=== PATIENT | female | born 1940 | race Caucasian/White ===

== ENCOUNTER 2016-07-17 21:26 | Observation (INO) | payer OTHER, BC ==
[~2016-07-17] VITALS: Ht 156.2 cm; Wt 60.0 kg
[2016-07-17 22:21] LABS: BASO % 0.5 %; BASO ABS # 0.04 K/uL (0-0.2); COMPLETE YES; EOS % 0.2 %; HEMATOCRIT 36.7 % (37-47); IG% 0.4 %; LYMPH % 22.4 %; LYMPH ABS # 1.89 K/uL (1.2-3.4); MEAN CELL VOLUME 89.7 fL (80-100); MEAN CORPUSCULAR HEMOGLOBIN 31.8 pg (25-34); MEAN CORPUSCULAR HGB CONC 35.4 g/dl (32-36); MEAN PLATELET VOLUME 9.9 fL (7.4-10.4); MONO % 8.6 %; NEUT % 67.9 %; PLATELET COUNT 331 K/uL (130-400); RED BLOOD COUNT 4.09 M/uL (4.2-5.4); WHITE BLOOD COUNT 8.45 K/uL (4.8-10.8)
[2016-07-17] MEDS ORDERED: SODIUM CHLORIDE 0.9% 250ML 250 ML IV STA (22:29)
[2016-07-17] MEDS ORDERED: ONDANSETRON INJ 2 MG/ML 2 ML VIAL IV STA (22:29)
[2016-07-17 22:32] LABS: ALT/SGPT 21 U/L (12-78); BLOOD UREA NITROGEN 10 mg/dl (7-18); BUN/CREATININE RATIO 10.5 (10-20); CALCIUM 9.1 mg/dl (8.5-10.1); CARBON DIOXIDE 22 mmol/L (21-32); CHLORIDE 94 mmol/L (98-107); CREATININE 0.94 mg/dl (0.60-1.20); GLUCOSE 135 mg/dl (70-99); MAGNESIUM 1.7 mg/dl (1.8-2.4); POTASSIUM 2.8 mmol/L (3.5-5.1); SODIUM 131 mmol/L (136-145)
[2016-07-17] MEDS ORDERED: BIMA0.01 OP (22:32)
[2016-07-17] MEDS ORDERED: CPR500 PO (22:32)
[2016-07-17] MEDS ORDERED: BRIM0.1S OP (22:32)
[2016-07-17] MEDS ORDERED: LISIPOW PO (22:32)
[2016-07-17] MEDS ORDERED: DORZ2SOL17 OP (22:32)
[2016-07-17] MEDS ORDERED: METR-163 PO (22:32)
--- NOTE | 2016-07-17 22:34 | DIAGNOSTIC IMAGING REPORT ---
SINGLE VIEW CHEST CLINICAL HISTORY: Atypical chest pain. FINDINGS: An AP, portable, upright chest radiograph is obtained. No prior studies are available for comparison at the time of dictation. The examination is degraded by portable technique and apical lordotic positioning. The heart is mildly enlarged and there is atherosclerotic calcification of the thoracic aorta. The pulmonary vasculature is noncongested. The lungs and pleural spaces are clear. No pneumothorax is seen. The skeletal structures are osteopenic. The bony thorax is grossly intact. IMPRESSION: Cardiac enlargement with no active disease in the chest. Electronically signed by: Lemuel Sim M.D. 07/17/2016 10:33 PM Dictated Date/Time: 07/17/2016 10:32 PM
[2016-07-17 22:41] LABS: ALKALINE PHOSPHATASE 70 U/L (45-117); AST/SGOT 16 U/L (15-37); CKMB/CK RATIO 1.3 (0-3.0)
[2016-07-17] MEDS ORDERED: MAGNESIUM SULFATE 1GM / D5W 1 GM BAG IV STA (23:02)
[2016-07-17] MEDS ORDERED: POTASSIUM CHLORIDE 10 MEQ TABCR PO STA (23:02)
[2016-07-17] MEDS ORDERED: METOCLOPRAMIDE HCL INJ 5 MG/ML 2 ML VIAL IV STA (23:17)
[2016-07-17 23:19] LABS: URINE APPEARANCE CLEAR (CLEAR); URINE BILIRUBIN NEG (NEG); URINE COLOR YELLOW; URINE EPITHELIAL CELL AUTO 20-30 /lpf (0-5); URINE NITRITE NEG (NEG); URINE PH 5.5 (4.5-7.5); URINE SPECIFIC GRAVITY 1.011 (1.000-1.030); UROBILINOGEN NEG (NEG); ZZUR CULT IF INDIC CLEAN CATCH NO
[2016-07-17 23:24] LABS: MANUAL MICROSCOPIC REQUIRED? NO; REVIEW REQ? NO
[2016-07-17] MEDS ORDERED: LISINOPRIL 20 MG TAB PO STA (23:35)
[2016-07-17 23:45] LABS: PARTIAL THROMBOPLASTIN RATIO 1.1
[2016-07-17] MEDS ORDERED: ONDANSETRON INJ 2 MG/ML 2 ML VIAL IV PRN (23:45)
[2016-07-17] MEDS ORDERED: PROMETHAZINE HCL INJ 12.5 MG in SODIUM CHLORIDE 0.9% 50ML 50 ML IV PRN (23:45)
[2016-07-17] MEDS ORDERED: ACETAMINOPHEN 325 MG TAB PO PRN (23:45)
[2016-07-17] MEDS ORDERED: MoRPHine SULFATE 4 MG/ML 1 ML CARP\\VIAL IV PRN (23:45)
[2016-07-17] MEDS ORDERED: LORAZEPAM 2 MG/ML 1 ML VIAL IV PRN (23:45)
[2016-07-17] MEDS ORDERED: TRAMADOL HCL 50 MG TAB PO PRN (23:45)
[2016-07-17] MEDS ORDERED: NITROGLYCERIN 0.4 MG SL PER TAB CHARGE SL PRN (23:45)
[2016-07-17] MEDS ORDERED: LISINOPRIL 5 MG TAB ONE (23:58)
--- NOTE | 2016-07-18 00:03 | HISTORY & PHYSICAL EXAMINATION ---
DATE OF ADMISSION: 07/17/2016 PRIMARY DOCTOR: Ceci Sorensen PA-C. Hx obtained from px and records. CHIEF COMPLAINT: Not feeling well, diarrhea. HISTORY OF PRESENT ILLNESS: Medical history significant for hypertension, glaucoma, history of diverticulitis. Patient seen at PCP's office about 2 weeks ago for sick visit. Not feeling well, cold symptoms, nonproductive cough, upset stomach, nausea, loose stools. Lab work normal, plain abd x-ray normal. Patient later requested for prescription thinking she may have symptoms of possible diverticulitis. Had a few days intake of meds, increased diarrhea. Denies chest pain, shortness of breath. Px feeling worse, tingly all over. Patient brought to the Emergency Room. MEDICAL HISTORY: As above. SURGERIES: She has had eye surgery, orthopedic procedures. HOME MEDICATIONS: Include Zofran, lisinopril/HCTZ, cranberry, calcium carbonate, polyethylene glycol, Lumigan. ALLERGIES: OXYCODONE, PENICILLIN, PREDNISONE, AND TIMOLOL. FAMILY HISTORY: Hypertension. PERSONAL SOCIAL HISTORY: Nonsmoker, no chronic intake of beverages. 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 REVIEW OF SYSTEMS: As per HPI, all other ROS negative. PHYSICAL EXAMINATION: VITAL SIGNS: Blood pressure was noted to be 195/97, later 180/70 pulse rate 100, RR 20 temperature 36.6, sats 98RA GENERAL: Slightly anxious, obese, no respiratory distress. SKIN: Normal color. HEENT: [place] palpebral conjunctivae. Dry mucosa. NECK: Short neck. LUNGS: Decreased breath sounds. HEART: Regular rate and rhythm. ABDOMEN: Some distention, nontender. EXTREMITIES: No edema. no tenderness NEUROLOGIC: No gross focality. LABS: Hemoglobin 13, hematocrit 36.7, white cells 8.4, platelets 230. Sodium 131, potassium 2.8, chloride 94, CO2 22, BUN 10, creatinine 1, glucose was noted to be 135. Troponin was normal. IMAGING DATA: Chest x-ray normal. EKG - some ST depressions in the lateral leads. ASSESSMENT: 1. Hypertensive urgency secondary to illness, viral enteritis rule out Cdif diarrhea 2. hypokalemia secondary to diarrheal illness PLAN: Observation PCU. judicious blood pressure control. May need extra dose of lisinopril. IVF, Replace potassium. Hold home diuretic for now. DC cipro/flagyl (no diverticultis on clinical exam) Check stool C. dif. Home tomorrow morning if BP controlled and w/ clinical/symptomatic improvement DVT prophylaxis, Lovenox subQ. Full code. MTDD
[2016-07-18 00:20] VITALS: BP 150/84; PULSE 95; TEMP 36.6; O2SAT 93; Ht 156.2 cm; Wt 60.0 kg
[2016-07-18] MEDS ORDERED: IV FLUIDS COMPLETED PRN (00:30)
[2016-07-18] MEDS ORDERED: POTASSIUM CHLORIDE INJ 40 MEQ in SODIUM CHLORIDE 0.9% 1000ML 1,000 ML IV SCH (01:00)
[2016-07-18] MEDS: ALPHAGAN~ORDER AWAITING ACTION SCH ×3 (01:15→15:48)
[2016-07-18] MEDS ORDERED: LORAZEPAM INJ 0.5 MG in SYRINGE 0.75 ML IV PRN (01:15)
[2016-07-18] MEDS: POTASSIUM CHLORIDE 10 MEQ TABCR PO ONE ×2 (01:28→02:06)
[2016-07-18 01:35] LABS: PROTHROMBIN TIME (PATIENT) 11.1 SECONDS (9.0-12.0)
[2016-07-18 04:00] VITALS: BP 140/64; PULSE 98; TEMP 36.6; O2SAT 96
--- NOTE | 2016-07-18 05:02 | EMERGENCY ROOM VISIT NOTE ---
History First contact with patient: 21:55 Chief Complaint: NAUSEA Stated Complaint: TREMORS,NAUSEA,DIARRHEA Nursing Triage Summary: patient reports diarrhea since 0530 this morning with dry heaving, states "I was just getting over the cold and now this." History of Present Illness The patient is a 75 year old female who presents to the Emergency Room with complaints of nausea, heartburn and diarrhea for the past few days. Patient states 2 weeks ago she was not feeling well and went to see her family doctor. Had blood work done and then emailed her PCP 3 days ago as she thought she might have diverticulitis could she had nausea and diarrhea. Family doctor prescribed her Cipro and Flagyl. Symptoms got worse. She then came here for further evaluation and treatment. Patient complains of occasional heartburn with nausea and 6 episodes of nonbloody non-bloody and non-mucousy nonblack and tarry diarrhea today. No other antibiotics. No well water. Patient denies chest pain, dyspnea, fever, chills, vomiting, urinary symptoms. Patient is tolerating by mouth fluids but has a lack of appetite. Review of Systems See HPI for pertinent positives & negatives. A total of 10 systems reviewed and were otherwise negative. Past Medical/Surgical History Medical Problems: (1) Hypertensive urgency Hypertension, glaucoma, diverticulitis Social History Smoking Status: Never Smoker Smokeless Tobacco Use: No Alcohol Use: none Drug Use: none Marital Status: Housing Status: lives with family Current/Historical Medications Scheduled Bimatoprost (Lumigan), 1 DROPS OP HS Brimonidine Tartrate (Alphagan P Oph), 1 DROP OP BID Ciprofloxacin (Ciprofloxacin HCl), 500 MG PO BID Dorzolamide Hcl (Trusopt Oph), 1 DROPS OP BID Metronidazole (Flagyl), 500 MG PO TID [Lisinopril], 1 DOSE PO DAILY Allergies Coded Allergies: Penicillins (Unverified Allergy, Unknown, hives, 07/17/16) Physical Exam Vital Signs Date Time Temp Pulse Resp B/P Pulse Ox O2 Delivery O2 Flow Rate FiO2 07/17/16 23:06 103 07/17/16 22:57 105 20 180/101 94 Room Air 07/17/16 22:12 97 Room Air 07/17/16 22:12 97 Room Air 07/17/16 21:33 36.6 118 18 195/97 97 Room Air Pain Rating (0-10): 0 Physical Exam VITALS: Vitals are noted on the nurse's note and reviewed by myself. Vital signs hypertensive and tachycardic GENERAL: Pleasant female, in no acute distress, nondiaphoretic, well-developed well-nourished. SKIN: The skin was without rashes, erythema, edema, or bruising. There is no tenting of the skin. Capillary reflex less than 2 seconds. HEAD: Normocephalic atraumatic. EARS: External auditory canals clear, tympanic membranes pearly gallagher without erythema or effusion bilaterally. EYES: Pupils equal round and reactive to light and accommodation. Conjunctivae without injection, sclerae without icterus. Extraocular movements intact. NOSE: Patent, turbinates without inflammation or discharge. MOUTH: Mucous membranes mildly dry. Pharynx without erythema or exudate. Uvula midline. Airway patent. Tongue does not deviate. NECK: Supple without nuchal rigidity. No lymphadenopathy. No thyromegaly. Cervical spine is nontender. No JVD. HEART: Regular rate and rhythm LUNGS: Clear to auscultation bilaterally without wheezes, rales or rhonchi. No dullness to percussion. No retractions or accessory muscle use. ABDOMEN: Positive bowel sounds x 4. Normal tympanic percussion. Soft, nontender, without masses or organomegaly. Goldberg sign negative. No guarding or rebound tenderness. No CVA tenderness MUSCULOSKELETAL: No muscle atrophy, erythema, or edema noted. NEURO: Patient was alert and oriented to person place and time. Normal sensation to light and sharp touch. No focal neurological deficits. Medical Decision & Procedures Laboratory Results Test 07/17/16 21:10 07/17/16 22:00 07/17/16 22:10 Prothrombin Time 11.1 SECONDS (9.0-12.0) Prothromb Time International Ratio 1.0 (0.9-1.1) RDW Standard Deviation 40.1 fL (36.4-46.3) RDW Coefficient of Variation 12.2 % (11.5-14.5) White Blood Count 8.45 K/uL (4.8-10.8) Red Blood Count 4.09 M/uL (4.2-5.4) Hemoglobin 13.0 g/dL (12.0-16.0) Hematocrit 36.7 % (37-47) Mean Corpuscular Volume 89.7 fL (80-100) Mean Corpuscular Hemoglobin 31.8 pg (25-34) Mean Corpuscular Hemoglobin Concent 35.4 g/dl (32-36) Platelet Count 331 K/uL (130-400) Mean Platelet Volume 9.9 fL (7.4-10.4) Neutrophils (%) (Auto) 67.9 % Lymphocytes (%) (Auto) 22.4 % Monocytes (%) (Auto) 8.6 % Eosinophils (%) (Auto) 0.2 % Basophils (%) (Auto) 0.5 % Neutrophils # (Auto) 5.74 K/uL (1.4-6.5) Lymphocytes # (Auto) 1.89 K/uL (1.2-3.4) Monocytes # (Auto) 0.73 K/uL (0.11-0.59) Eosinophils # (Auto) 0.02 K/uL (0-0.5) Basophils # (Auto) 0.04 K/uL (0-0.2) Immature Granulocyte % (Auto) 0.4 % Immature Granulocyte # (Auto) 0.03 K/uL (0.00-0.02) Urine Color YELLOW Urine Appearance CLEAR (CLEAR) Urine pH 5.5 (4.5-7.5) Urine Specific [place] 1.011 (1.000-1.030) Urine Protein NEG (NEG) Urine Glucose (UA) NEG (NEG) Urine Ketones TRACE (NEG) Urine Occult Blood NEG (NEG) Urine Nitrite NEG (NEG) Urine Bilirubin NEG (NEG) Urine Urobilinogen NEG (NEG) Urine Leukocyte Esterase TRACE (NEG) Urine WBC (Auto) 1-5 /hpf (0-5) Urine RBC (Auto) 0-4 /hpf (0-4) Urine Hyaline Casts (Auto) 1-5 /lpf (0-5) Urine Epithelial Cells (Auto) 20-30 /lpf (0-5) Urine Bacteria (Auto) NEG (NEG) Est Creatinine Clear Calc Drug Dose 47.8 ml/min Total Bilirubin 0.3 mg/dl (0.2-1) Direct Bilirubin < 0.1 mg/dl (0-0.2) Aspartate Amino Transf (AST/SGOT) 16 U/L (15-37) Alanine Aminotransferase (ALT/SGPT) 21 U/L (12-78) Alkaline Phosphatase 70 U/L (45-117) Total Creatine Kinase 119 U/L (26-192) Creatine Kinase MB 1.5 ng/ml (0.5-3.6) Creatine Kinase MB Ratio 1.3 (0-3.0) Troponin I < 0.015 ng/ml (0-0.045) Total Protein 7.0 gm/dl (6.4-8.2) Albumin 4.1 gm/dl (3.4-5.0) Lipase 87 U/L (73-393) Thyroid Stimulating Hormone (TSH) 2.030 uIu/ml (0.300-4.500) Activated Partial Thromboplast Time 27.8 SECONDS (21.0-31.0) Partial Thromboplastin Ratio 1.1 Date/Time Source Procedure Growth Status 07/17/16 22:45 Stool C.difficile Toxin B Gene (PCR) - Final No C. difficile toxin B gene detected Complete Medications Administered Medications (Trade) Dose Ordered Sig/Taylor Route Start Time Stop Time Status Last Admin Dose Admin Ondansetron HCl 4 mg 4 mg NOW STAT IV 07/17/16 22:29 07/17/16 22:30 DC 07/17/16 22:56 4 MG Sodium Chloride (Nss 250ml) 250 ml @ 999 mls/hr Q16M STAT IV 07/17/16 22:29 07/17/16 22:44 DC 07/17/16 22:55 999 MLS/HR Potassium Chloride (Klor-Con M10) 40 meq NOW STAT PO 07/17/16 23:02 07/17/16 23:04 DC 07/17/16 23:42 40 MEQ Magnesium Sulfate (Magnesium Sulfate) 1 gm NOW STAT IV 07/17/16 23:02 07/17/16 23:04 DC 07/17/16 23:41 1 GM Metoclopramide HCl (Reglan Inj) 5 mg NOW STAT IV 07/17/16 23:17 07/17/16 23:18 DC 07/17/16 23:42 5 MG ED Course Prior records/ancillary studies reviewed and summarized above. Nursing notes reviewed. Additional history obtained from family The patient's history was concerning for nausea, diarrhea, fatigue and heartburn Differential diagnosis: Etiologies such as metabolic, infection, hypo/hyperglycemia, electrolyte abnormalities, cardiac sources, intracerebral event, toxicologic, neurologic, as well as others were entertained. Physical examination: As above. ER treatment provided: IV Lock IV fluids, Zofran, Reglan On reassessment the patient felt better. Diagnostics interpretation by me: ECG: Normal sinus, normal intervals, minimal ST depression in the lateral leads , rate of 97. EKG compared to prior EKG from 07/05/2016 with the EKG depressions appreciated in the lateral leads interpreted by myself The labs revealed low potassium. Low magnesium and this is replaced. Negative troponin Imaging studies: SINGLE VIEW CHEST CLINICAL HISTORY: Atypical chest pain. FINDINGS: An AP, portable, upright chest radiograph is obtained. No prior studies are available for comparison at the time of dictation. The examination is degraded by portable technique and apical lordotic positioning. The heart is mildly enlarged and there is atherosclerotic calcification of the thoracic aorta. The pulmonary vasculature is noncongested. The lungs and pleural spaces are clear. No pneumothorax is seen. The skeletal structures are osteopenic. The bony thorax is grossly intact. IMPRESSION: Cardiac enlargement with no active disease in the chest. Electronically signed by: Lemuel Sim M.D. 07/17/2016 10:33 PM Consultation: A consultation was placed with the hospitalist, Dr. Bragg. The case was discussed and diagnostics were reviewed. The patient was evaluated in the ER for further treatment. Exam and history seem consistent with nausea, diarrhea with electrolyte abnormalities EKG changes. This could be an anginal equivalent. Patient will be evaluated by medicine for possible admission.By the evaluation outlined above emergent etiologies such as infection, intracerebral event, toxologic, neurologic, abnormalities blood glucose, metabolic, as well as others were deemed relatively unlikely. The pt informed about the findings as listed above. All questions were answered and pleased with the treatment. Case reviewed by attending Medical Decision As above Impression Primary Impression: Nausea Additional Impressions: Acute electrocardiogram changes Diarrhea Hypokalemia Hypomagnesemia Departure Information Dispostion Being Evaluated By Hospitalist Condition FAIR Referrals Ceci Spence PA-C (PCP) Patient Instructions My [facility] Problem Qualifiers
[2016-07-18 06:29] LABS: BASO % 0.3 %; BASO ABS # 0.02 K/uL (0-0.2); COMPLETE YES; HEMATOCRIT 34.4 % (37-47); IG% 0.3 %; LYMPH % 15.5 %; LYMPH ABS # 1.23 K/uL (1.2-3.4); MEAN CELL VOLUME 89.6 fL (80-100); MEAN CORPUSCULAR HEMOGLOBIN 31.5 pg (25-34); MEAN CORPUSCULAR HGB CONC 35.2 g/dl (32-36); MEAN PLATELET VOLUME 9.5 fL (7.4-10.4); MONO % 8.8 %; NEUT % 75.1 %; PLATELET COUNT 285 K/uL (130-400); RED BLOOD COUNT 3.84 M/uL (4.2-5.4); WHITE BLOOD COUNT 7.96 K/uL (4.8-10.8)
[2016-07-18 07:04] LABS: BUN/CREATININE RATIO 10.2 (10-20); CALCIUM 8.7 mg/dl (8.5-10.1); CREATININE 0.84 mg/dl (0.60-1.20); MAGNESIUM 2.1 mg/dl (1.8-2.4)
[2016-07-18 07:37] VITALS: BP 175/91; PULSE 96; TEMP 36.6; O2SAT 96
[2016-07-18] MEDS: ENOXAPARIN 40 MG/0.4 ML SYR SC SCH ×2 (08:31→08:35)
[2016-07-18] MEDS ORDERED: DORZOLAMIDE HCL 2% OPH SOLN 10 ML BTL OP SCH (09:00)
[2016-07-18] MEDS ORDERED: LISINOPRIL 20 MG TAB PO SCH (09:00)
[2016-07-18 12:06] VITALS: BP 137/79; PULSE 88; TEMP 36.9; O2SAT 95
--- NOTE | 2016-07-18 15:22 | Progress Note ---
Medicine Progress Note Date & Time of Visit: Jul 18, 2016 at 15:10. Subjective Pt was seen and examine Pt was coming off from the bathroom when i entered her room she walks fine with no distress Pt said that she only had one episode of loose stool she said that she feels fine denies any chest pain, palpitation, dizziness and sob she tolerated clear liquid diet Objective Last 8 Hrs Date Time Temp Pulse Resp B/P Pulse Ox O2 Delivery O2 Flow Rate FiO2 07/18/16 12:06 36.9 88 18 137/79 95 Room Air 07/18/16 08:00 Room Air 07/18/16 07:37 36.6 96 18 175/91 96 Room Air Physical Exam: General- No acute distress Head- atraumatic Eyes- PERRL, EOMI ENT- oropharynx clear Neck- supple, no JVD Lungs- clear to auscultation and percussion Heart- regular rhythm; no murmur Abdomen- normal bowel sounds, soft Extremities- no calf tenderness Neuro- alert, oriented, PERRL, EOMI Skin- warm & dry Laboratory Results: Last 24 Hours Test 07/17/16 21:10 07/17/16 22:00 07/17/16 22:10 07/18/16 06:17 Prothrombin Time 11.1 SECONDS Prothromb Time International Ratio 1.0 White Blood Count 8.45 K/uL 7.96 K/uL Red Blood Count 4.09 M/uL 3.84 M/uL Hemoglobin 13.0 g/dL 12.1 g/dL Hematocrit 36.7 % 34.4 % Mean Corpuscular Volume 89.7 fL 89.6 fL Mean Corpuscular Hemoglobin 31.8 pg 31.5 pg Mean Corpuscular Hemoglobin Concent 35.4 g/dl 35.2 g/dl Platelet Count 331 K/uL 285 K/uL Mean Platelet Volume 9.9 fL 9.5 fL Neutrophils (%) (Auto) 67.9 % 75.1 % Lymphocytes (%) (Auto) 22.4 % 15.5 % Monocytes (%) (Auto) 8.6 % 8.8 % Eosinophils (%) (Auto) 0.2 % 0.0 % Basophils (%) (Auto) 0.5 % 0.3 % Neutrophils # (Auto) 5.74 K/uL 5.99 K/uL Lymphocytes # (Auto) 1.89 K/uL 1.23 K/uL Monocytes # (Auto) 0.73 K/uL 0.70 K/uL Eosinophils # (Auto) 0.02 K/uL 0.00 K/uL Basophils # (Auto) 0.04 K/uL 0.02 K/uL RDW Standard Deviation 40.1 fL 40.0 fL RDW Coefficient of Variation 12.2 % 12.3 % Immature Granulocyte % (Auto) 0.4 % 0.3 % Immature Granulocyte # (Auto) 0.03 K/uL 0.02 K/uL Urine Color YELLOW Urine Appearance CLEAR Urine pH 5.5 Urine Specific [place] 1.011 Urine Protein NEG Urine Glucose (UA) NEG Urine Ketones TRACE Urine Occult Blood NEG Urine Nitrite NEG Urine Bilirubin NEG Urine Urobilinogen NEG Urine Leukocyte Esterase TRACE Urine WBC (Auto) 1-5 /hpf Urine RBC (Auto) 0-4 /hpf Urine Hyaline Casts (Auto) 1-5 /lpf Urine Epithelial Cells (Auto) 20-30 /lpf Urine Bacteria (Auto) NEG Sodium Level 131 mmol/L 133 mmol/L Potassium Level 2.8 mmol/L 4.0 mmol/L Chloride Level 94 mmol/L 99 mmol/L Carbon Dioxide Level 22 mmol/L 22 mmol/L Anion Gap 15.0 mmol/L 12.0 mmol/L Blood Urea Nitrogen 10 mg/dl 9 mg/dl Creatinine 0.94 mg/dl 0.84 mg/dl Est Creatinine Clear Calc Drug Dose 47.8 ml/min 53.9 ml/min Estimated GFR () 68.3 78.2 Estimated GFR (Non- 58.9 67.5 BUN/Creatinine Ratio 10.5 10.2 Random Glucose 135 mg/dl 112 mg/dl Calcium Level 9.1 mg/dl 8.7 mg/dl Magnesium Level 1.7 mg/dl 2.1 mg/dl Total Bilirubin 0.3 mg/dl Direct Bilirubin < 0.1 mg/dl Aspartate Amino Transf (AST/SGOT) 16 U/L Alanine Aminotransferase (ALT/SGPT) 21 U/L Alkaline Phosphatase 70 U/L Total Creatine Kinase 119 U/L Creatine Kinase MB 1.5 ng/ml Creatine Kinase MB Ratio 1.3 Troponin I < 0.015 ng/ml Total Protein 7.0 gm/dl Albumin 4.1 gm/dl Lipase 87 U/L Thyroid Stimulating Hormone (TSH) 2.030 uIu/ml Activated Partial Thromboplast Time 27.8 SECONDS Partial Thromboplastin Ratio 1.1 Date/Time Source Procedure Growth Status 07/17/16 22:45 Stool C.difficile Toxin B Gene (PCR) - Final No C. difficile toxin B gene detected Complete 07/17/16 22:45 Stool Shiga Toxin Test Pending Received 07/17/16 22:45 Stool Stool Culture Pending Received 07/17/16 22:00 Urine , Clean Catch Urine Culture Pending Received Assessment & Plan Hypertensive urgency Possible related to recent illness BP stable She received 10 mg of lisinopril last night and 20mg this morning she was on lisinopril/hctz 20/25 mg daily as an outpatient will consider to discharge on lisinopril 40 mg daily Electrolytes imbalance Possible related to diarrhea vs diuretic K and Mg replaced K today 4 Mg today 2.1 Diarrhea Stool for C diff negative continue gentle IVF DVT px on Lovenox subq Code Status Full code. Current Inpatient Medications: Current Inpatient Medications Medications (Trade) Dose Ordered Sig/Taylor Route Start Time Stop Time Status Last Admin Dose Admin Enoxaparin Sodium (Lovenox Inj) 40 mg Q24H SC 07/18/16 09:00 08/17/16 08:59 Acetaminophen (Tylenol Tab) 650 mg Q4H PRN PO 07/17/16 23:45 08/16/16 23:44 Nitroglycerin (Nitrostat Tab) 0.4 mg UD PRN SL 07/17/16 23:45 08/16/16 23:44 Ondansetron HCl (Zofran Inj) 4 mg Q6H PRN IV 07/17/16 23:45 08/16/16 23:44 Tramadol HCl (Ultram Tab) 25 mg Q6H PRN PO 07/17/16 23:45 08/16/16 23:44 Morphine Sulfate 4 mg 4 mg Q3H PRN IV 07/17/16 23:45 07/31/16 23:44 Promethazine HCl/ Sodium Chloride (Phenergan Inj/ Nss 50ml) 50.5 ml @ 204 mls/hr Q6H PRN IV 07/17/16 23:45 08/16/16 23:44 07/18/16 01:18 204 MLS/HR Lorazepam (Ativan Inj) 0.5 mg Q4H PRN IV 07/17/16 23:45 08/16/16 23:44 Dorzolamide HCl (Trusopt 2% Oph Soln) 1 drops BID OP 07/18/16 09:00 08/17/16 08:59 07/18/16 08:30 1 DROPS Bimatoprost (Lumigan 0.01%) 1 drops HS OP 07/18/16 21:00 08/17/16 20:59 Miscellaneous Information (Order Awaiting Action) 1 ea QS N/A 07/18/16 01:15 08/17/16 01:14 Lisinopril (Zestril Tab) 20 mg QAM PO 07/18/16 09:00 08/17/16 08:59 07/18/16 08:28 20 MG Miscellaneous 1 ea 1 ea PRN PRN N/A 07/18/16 00:30 07/18/17 00:29 Lorazepam/Syringe (Ativan Inj/ Syringe) 1 ml @ 1 mls/min Q4H PRN IV 07/18/16 01:15 08/17/16 01:14
[2016-07-18 16:04] VITALS: BP 150/88; PULSE 81; TEMP 36.6; O2SAT 98
[2016-07-18 18:26] VITALS: BP 150/88; PULSE 81; TEMP 36.6; O2SAT 98
[2016-07-18] MEDS ORDERED: LISI-461 PO (19:01)
--- NOTE | 2016-07-18 19:05 | Discharge Instructions ---
Discharge Instructions Admission Reason for Admission: Hypertensive Urgency Discharge Discharge Diagnosis / Problem: Hypertension, Hypokalemia, Diarrhea Discharge Goals Goal(s): Decrease discomfort, Improve function, Improve disease control Activity Recommendations Activity Limitations: resume your previous activity (as tolerated) . Instructions / Follow-Up Instructions / Follow-Up Follow up with Dr. Link ( Same office with your PCP) on Jul 23 at 11: 10 am Check BMP Monitor Blood pressure Current Hospital Diet Patient's current hospital diet: Regular Diet Discharge Diet Recommended Diet: Low Sodium Diet (2gm Na) Pending Studies Studies pending at discharge: no Medical Emergencies . Who to Call and When: Medical Emergencies: If at any time you feel your situation is an emergency, please call 911 immediately. . Non-Emergent Contact Non-Emergency issues call your: Primary Care Provider Call Non-Emergent contact if: you have any medication questions . . "Provider Documentation" section prepared by Pee Milan. VTE Core Measure Inpt VTE Proph given/why not?: Enoxaparin (Lovenox)SQ
[2016-07-18] MEDS ORDERED: LISI20TA3 PO (19:13)
[2016-07-18] MEDS ORDERED: LSN40 PO (19:18)
[2016-07-18] MEDS ORDERED: BIMATOPROST 0.01% OP SOLN 2.5 ML BTL OP SCH (21:00)
--- NOTE | 2016-07-18 22:34 | Discharge Summary ---
Discharge Summary Admission Date: Jul 17, 2016 at 23:17 Discharge Date: Jul 18, 2016 Discharge Disposition: Home Principal Diagnosis: Hypertensive urgency Secondary Diagnoses/Problems: Hypertension, Hypokalemia, Diarrhea Medication Reconciliation New Medications: Lisinopril (Lisinopril) 40 Mg Tab 40 MG PO DAILY for 30 Days, #30 Continued Medications: Bimatoprost (Lumigan) 0.01 % Corrie 1 DROPS OP HS, 3 Refills Brimonidine Tartrate (Alphagan P Oph) 0.1 % Corrie 1 DROP OP BID, BTL Dorzolamide Hcl (Trusopt Oph) 2 % Corrie 1 DROPS OP BID, 3 Refills Discontinued Medications: Ciprofloxacin (Ciprofloxacin HCl) 500 Mg Tab 500 MG PO BID Metronidazole (Flagyl) 500 Mg Tab 500 MG PO TID, TAB [Lisinopril] () 1 DOSE PO DAILY Admission Information HPI (per Admitting provider): Hx obtained from px and records. CHIEF COMPLAINT: Not feeling well, diarrhea. HISTORY OF PRESENT ILLNESS: Medical history significant for hypertension, glaucoma, history of diverticulitis. Patient seen at PCP's office about 2 weeks ago for sick visit. Not feeling well, cold symptoms, nonproductive cough, upset stomach, nausea, loose stools. Lab work normal, plain abd x-ray normal. Patient later requested for prescription thinking she may have symptoms of possible diverticulitis. Had a few days intake of meds, increased diarrhea. Denies chest pain, shortness of breath. Px feeling worse, tingly all over. Patient brought to the Emergency Room. Physical Exam (per Admitting): PHYSICAL EXAMINATION: VITAL SIGNS: Blood pressure was noted to be 195/97, later 180/70 pulse rate 100, RR 20 temperature 36.6, sats 98RA GENERAL: Slightly anxious, obese, no respiratory distress. SKIN: Normal color. HEENT: [place] palpebral conjunctivae. Dry mucosa. NECK: Short neck. LUNGS: Decreased breath sounds. HEART: Regular rate and rhythm. ABDOMEN: Some distention, nontender. EXTREMITIES: No edema. no tenderness NEUROLOGIC: No gross focality. Hospital Course Hypertensive urgency Possible related to recent illness BP stable now She received 10 mg of lisinopril last night and 20mg this morning she was on lisinopril/hctz 20/25 mg daily as an outpatient will consider to discharge on lisinopril 40 mg daily will hold hctz due to severe hypokalemia Electrolytes imbalance Possible related to diarrhea vs diuretic K and Mg replaced K today 4 Mg today 2.1 Diarrhea Stool for C diff negative continue gentle IVF DVT px on Lovenox subq Code Status Full code. Total time spent on discharge = 35 minutes This includes examination of the patient, discharge planning, medication reconciliation, and communication with other providers. Discharge Instructions Discharge Instructions Admission Reason for Admission: Hypertensive Urgency Discharge Discharge Diagnosis / Problem: Hypertension, Hypokalemia, Diarrhea Discharge Goals Goal(s): Decrease discomfort, Improve function, Improve disease control Activity Recommendations Activity Limitations: resume your previous activity (as tolerated) . Instructions / Follow-Up Instructions / Follow-Up Follow up with Dr. Link ( Same office with your PCP) on Jul 23 at 11: 10 am Check BMP Monitor Blood pressure Current Hospital Diet Patient's current hospital diet: Regular Diet Discharge Diet Recommended Diet: Low Sodium Diet (2gm Na) Pending Studies Studies pending at discharge: no Medical Emergencies . Who to Call and When: Medical Emergencies: If at any time you feel your situation is an emergency, please call 911 immediately. . Non-Emergent Contact Non-Emergency issues call your: Primary Care Provider Call Non-Emergent contact if: you have any medication questions . . "Provider Documentation" section prepared by Pee Milan. VTE Core Measure Inpt VTE Proph given/why not?: Enoxaparin (Lovenox)SQ Additional Copies To Ceci Spence PA-C
== END 2016-07-18 19:37 | disposition home or self-care (01) ==
LOC: ENRESERVDT → ENRESERVTM → C.EDB 21:31 → C.MED 23:17
PROVIDERS: ADMIT Internal Medicine; ATTEND Internal Medicine
DX: I16.0 Hypertensive urgency (principal); E87.6 Hypokalemia; E83.42 Hypomagnesemia; R19.7 Diarrhea, unspecified; H40.9 Unspecified glaucoma; Z88.0 Allergy status to penicillin; Z88.5 Allergy status to narcotic agent; Z82.49 Family history of ischemic heart disease and other diseases of the circulatory system; Z79.899 Other long term (current) drug therapy

== ENCOUNTER → 2017-07-30 | Day surgery (SDC) | payer OTHER, BC ==
[2017-07-19 12:07] VITALS: Ht 157.5 cm; Wt 75.0 kg
[~2017-07-30] VITALS: Ht 157.5 cm; Wt 75.0 kg
[~2017-07-30] MED LIST: ATOR10TA82 PO; BIMA0.01 OPB; BRIM0.1S OPB; BRIMONIDINE TART 0.2% OP SOLN PER DROP CHARGE OPR ONE; BRIMONIDINE TARTRATE 0.2% 5ML OP SCH; BRIMONIDINE TARTRATE 0.2% 5ML OPR SCH; CITA10TA4 PO; DORZ2SOL17 OPB; LISI20TA3 PO; PILOCARPINE HCL 2% OP SOLN 15 ML BTL ONE; PILOCARPINE HCL 2% OP SOLN 15 ML BTL OPR SCH; PROPARACAINE 0.5% OP SOLN PER DROP CHARGE OPR SCH; PrednisoLONE ACET 1% OP SUSP 5 ML BTL OP SCH; PrednisoLONE ACET 1% OP SUSP 5 ML BTL OPR ONE; VITAMINS PO
[2017-07-30 11:17] VITALS: BP 148/102; PULSE 68; O2SAT 97
--- NOTE | 2017-07-30 11:18 | Discharge Instructions-[facility] ---
Discharge Instructions Date of Service Jul 30, 2017. Visit Reason for Visit: Glaucoma Right Eye Discharge Discharge Diagnosis / Problem: glaucoma Discharge Goals Goal(s): Improve disease control Activity Recommendations Activity Limitations: resume your previous activity Anesthesia . Post Anesthesia Instructions: If you have had General Anesthesia or IV Sedation: * Do not drive today. * Resume driving when surgeon permits. * Do not make important decisions or sign legal documents today. * Call surgeon for: 1. Temperature elevations greater than 101 degrees F. 2. Uncontrollable pain. 3. Excessive bleeding. 4. Persistent nausea and vomiting. 5. Medication intolerance (nausea, vomiting or rash). * For nausea and vomiting use only clear liquids such as: tea, soda, bouillon until nausea subsides, then gradually increase diet as tolerated. * If you have any concerns or questions, call your surgeon's office. If physician is unavailable and it is an emergency, call 911 or go to the nearest emergency room. . Instructions / Follow-Up Instructions / Follow-Up ACTIVITY RECOMMENDATIONS: * No limitations RETURN TO SCHOOL/WORK: * No limitations DIET: * No limitations MEDICATIONS: Resume previous medications unless instructed otherwise by your surgeon. * Please use Prednisolone acetate drops prescription given to you at your office appointment as follows: 1 drop in effected eye 4 times a day for 5 days. * Continue all glaucoma drops as usual with no interruption to either eye. SPECIAL CARE INSTRUCTIONS: Call your doctor at with any concerns or problems. FOLLOW UP VISIT: Follow-up with Dr Soni in 1 hour. Diet Recommendations Home Diet: resume previous diet Pending Studies Studies pending at discharge: no Medical Emergencies . Who to Call and When: Medical Emergencies: If at any time you feel your situation is an emergency, please call 911 immediately. . Non-Emergent Contact Non-Emergency issues call your: Gar[employer] Manager . . "Provider Documentation" section prepared by Cristian Soni. .
--- NOTE | 2017-07-30 11:19 | [facility] Operative Report ---
Operative Report Date of Service Jul 30, 2017. Operative Report Diagnosis: Open angle glaucoma, right eye Procedure: SLT superior 180 degrees , right eye 57 spots, 1.3 mj Complications: none I attest to the content of the Intraoperative Record and any orders documented therein. Any exceptions are noted below.
== END | disposition home or self-care (01) ==
LOC: X.SURG 10:09
PROVIDERS: ATTEND Ophthalmology
DX: H40.10X0 Unspecified open-angle glaucoma, stage unspecified (principal); I10 Essential (primary) hypertension